=== PATIENT | male | born 1970 | race Caucasian/White ===

== ENCOUNTER 2020-11-24 12:50 | Emergency (ER) | payer OTHER ==
[~2020-11-24] VITALS: Ht 193 cm; Wt 154.2 kg
[~2020-11-24 12:50] MED LIST: CLINDAMYCIN HC300 MG PO
[2020-11-24 13:49] LABS: BASO # 0.1 10*3/uL (0.0-0.1); BASO % 1.4 % (0.0-1.0); EOS # 0.5 10*3/uL (0.0-0.4); EOS % 5.9 % (1.0-4.0); LYMPH # 2.7 10*3/uL (1.3-4.4); LYMPH % 34.6 % (27.0-41.0); MEAN CELL VOLUME 98.9 fl (80.0-94.0); MEAN CORPUSCULAR HGB 32.6 pg (27.0-31.0); MEAN PLATELET VOLUME 9.8 fl (9.6-12.3); MONO # 0.6 10*3/uL (0.1-1.0); MONO % 7.3 % (3.0-9.0); NEUT % 50.4 % (47.0-73.0); PLATELET COUNT AUTOMATED 219 10*3/uL (130-400); RED BLOOD COUNT 4.45 10*6/uL (4.50-5.90); RED CELL DISTRI WIDTH 13.5 % (0-14.5); WHITE BLOOD COUNT 7.8 10*3/uL (4.8-10.8)
[2020-11-24 14:07] LABS: ALBUMIN 2.9 gm/dl (3.1-4.5); ALKALINE PHOSPHATASE 59 U/L (45-117); BUN 13 mg/dl (7-24); CHLORIDE 105 mmol/L (98-107); CREATININE 0.91 mg/dL (0.70-1.30); POTASSIUM 3.9 mmol/L (3.5-5.1); SGOT/AST 23 IU/L (3-35); SGPT/ALT 33 U/L (12-78); SODIUM 137 mmol/L (136-145); TOTAL PROTEIN 7.4 gm/dL (6.4-8.2)
[2020-11-24 14:09] LABS: TROPONIN I < 0.015 ng/ml (<0.045)
[2020-11-24 14:46] LABS: BILIRUBIN Negative (Negative); BLOOD Negative (Negative); CLARITY Clear (Clear); COLOR Yellow (Yellow); GLUCOSE Negative (Negative); KETONE Negative (Negative); LEUKO ESTERASE Negative (Negative); NITRITE Negative (Negative); SPECIFIC GRAVITY 1.015 (1.001-1.030)
[2020-11-24 14:53] LABS: BACTERIA TRACE; RBC 0-2 rbc/hpf (0-2); WBC 0-2 wbc/hpf (0-5)
[2020-11-24] MEDS ORDERED: LASIX40 MG PO (15:41)
[2020-11-24] MEDS ORDERED: POTASSIUM CHLO20 ME3 PO (15:41)
[2020-11-24] MEDS ORDERED: SEPTDS PO (15:41)
== END 2020-11-24 16:09 | disposition home or self-care (01) ==
LOC: ED 12:50
PROVIDERS: Emergency Medicine
DX: R60.0 Localized edema (principal); L03.116 Cellulitis of left lower limb; E88.09 Other disorders of plasma-protein metabolism, not elsewhere classified; Z88.0 Allergy status to penicillin; Z79.899 Other long term (current) drug therapy

== ENCOUNTER 2023-01-05 11:33 | Emergency (ER) | payer BC ==
[~2023-01-05] VITALS: Ht 193 cm; Wt 156.5 kg
[~2023-01-05 11:33] MED LIST changes: +LASIX40 MG PO; +POTASSIUM CHLO20 ME3 PO; +SEPTDS PO
[2023-01-05 14:16] LABS: BASO # 0.1 10*3/uL (0.0-0.1); BASO % 1.2 % (0.0-1.0); EOS # 0.6 10*3/uL (0.0-0.4); EOS % 7.1 % (1.0-4.0); HEMATOCRIT 45.5 % (42.0-52.0); LYMPH # 2.7 10*3/uL (1.3-4.4); LYMPH % 33.3 % (27.0-41.0); MEAN CELL VOLUME 104.1 fl (80.0-94.0); MEAN CORPUSCULAR HGB 33.6 pg (27.0-31.0); MEAN CORPUSCULAR HGB CONC 32.3 g/dl (33.0-37.0); MEAN PLATELET VOLUME 10.1 fl (9.6-12.3); MONO # 0.6 10*3/uL (0.1-1.0); MONO % 7.7 % (3.0-9.0); NEUT # 4.1 10*3/uL (2.3-7.9); NEUT % 50.3 % (47.0-73.0); PLATELET COUNT AUTOMATED 219 10*3/uL (130-400); RED BLOOD COUNT 4.37 10*6/uL (4.50-5.90); RED CELL DISTRI WIDTH 13.3 % (0-14.5); WHITE BLOOD COUNT 8.1 10*3/uL (4.8-10.8)
[2023-01-05 14:27] LABS: INTERNATIONAL NORM RATIO 1.1 (2.0-3.5)
[2023-01-05 14:41] LABS: ALKALINE PHOSPHATASE 64 U/L (46-116); BUN 13 mg/dl (9-23); CHLORIDE 102 mmol/L (98-107); LIPASE 39 U/L (12-53); POTASSIUM 4.3 mmol/L (3.4-5.1); SGPT/ALT 20 U/L (10-49); TOTAL PROTEIN 7.5 gm/dL (6.0-8.0)
[2023-01-05] MEDS ORDERED: FUROSEMIDE40 MG PO (14:45)
[2023-01-05] MEDS ORDERED: POTASSIUM CHLO20 ME4 PO (14:45)
[2023-01-05] MEDS ORDERED: XARELTO15 M1 PO (15:56)
[2023-01-05] MEDS ORDERED: XARELTO20 M1 PO (15:56)
[2023-01-05] MEDS ORDERED: VIBRA-TAB100 MG PO (15:56)
== END 2023-01-05 16:25 | disposition home or self-care (01) ==
LOC: ED 11:33
PROVIDERS: Emergency Medicine
DX: I82.401 Acute embolism and thrombosis of unspecified deep veins of right lower extremity (principal); L03.115 Cellulitis of right lower limb; Z88.0 Allergy status to penicillin; Z79.899 Other long term (current) drug therapy

== ENCOUNTER 2024-02-12 16:58 | Emergency (ER) | payer BC ==
[~2024-02-12 16:58] MED LIST changes: +ENOXAPARIN80 MG/0.2 SC; +FUROSEMIDE40 MG PO; +NATURE'S BLEND F1 MG PO; +POTASSIUM CHLO20 ME4 PO; +VIBRA-TAB100 MG PO; +XARELTO15 M1 PO; +XARELTO20 M1 PO
[2024-02-13] MEDS ORDERED: LOVENOX100 MG/1 M PO (07:16)
[2024-02-13] MEDS ORDERED: VAZALORE81 MG PO (07:17)
[2024-02-13] MEDS ORDERED: PLAVIX75 M1 PO (07:17)
== END 2024-02-12 17:38 | disposition home or self-care (01) ==
LOC: ED 16:58
DX: M79.605 Pain in left leg (principal); F17.210 Nicotine dependence, cigarettes, uncomplicated; Z88.0 Allergy status to penicillin; Z90.49 Acquired absence of other specified parts of digestive tract

== ENCOUNTER 2024-02-13 07:02 | Emergency (ER) | payer BC ==
[~2024-02-13] VITALS: Ht 193 cm; Wt 158.8 kg
[2024-02-13] MEDS ORDERED: LOVENOX100 MG/1 M PO (07:16)
[2024-02-13] MEDS ORDERED: VAZALORE81 MG PO (07:17)
[2024-02-13] MEDS ORDERED: PLAVIX75 M1 PO (07:17)
[2024-02-13] MEDS ORDERED: ACETAMINOPHEN 325 MG TAB PO ONE (07:45)
== END 2024-02-13 10:30 | disposition home or self-care (01) ==
LOC: ED 07:02
DX: I82.412 Acute embolism and thrombosis of left femoral vein (principal); M79.652 Pain in left thigh; F17.210 Nicotine dependence, cigarettes, uncomplicated; Z88.0 Allergy status to penicillin; Z90.49 Acquired absence of other specified parts of digestive tract